=== PATIENT | female | born 1970 | race Two or more races ===

== ENCOUNTER 2020-10-25 18:10 | Emergency (ER) | payer OTHER ==
[~2020-10-25] VITALS: Ht 160 cm; Wt 67.1 kg
[2020-10-25] MEDS ORDERED: OXYC-128 PO (19:11)
[2020-10-25] MEDS ORDERED: OXYCODONE/APAP 5-325 MG TABLET PO ONE (19:15)
[2020-10-25] MEDS ORDERED: OXYCODONE/APAP 5-325 MG TABLET ONE (19:18)
--- NOTE | 2020-10-25 19:18 | NUR ---
Patient discharged to home in stable condition. Written and verbal after care instructions given. Patient verbalizes understanding of instructions. Stressed follow up or return to ER for worsening s/s.
[2020-10-25 19:19] VITALS: BP 120/67
== END 2020-10-25 19:19 | disposition home or self-care (01) ==
LOC: ER 18:17
DX: B34.9 Viral infection, unspecified (principal)
CPT/HCPCS: A4663